=== PATIENT | male | born 1975 | race Caucasian/White ===

== ENCOUNTER 2017-11-16 21:58 | Emergency (ER) | payer OTHER ==
[2017-11-16] MEDS ORDERED: HYDROcodone/APAP 5-325MG 1 EACH TAB PO STA (22:53)
--- NOTE | 2017-11-16 22:57 | ED ---
General Adult HPI - General Chief complaint: Back Pain/Injury Stated complaint: Fall/Back Pain Time Seen by Provider: 11/16/17 22:45 Source: patient, family, RN notes reviewed Mode of arrival: ambulatory Limitations: no limitations - History of Present Illness Initial comments: Chief complaint and history of present illness a 42-year-old male here with his . The patient reports she was going out to the animals that he slipped on the ice and snow. Leading on his steps. complains of pain to the left lower lumbar and left rib cage area. Denies any head neck arm or lower extremity pain. - Related Data Previous Rx's Medication Instructions Recorded Hydrocodone/Acetaminophen [[place] 1 each PO Q6HR PRN #16 tab 11/16/17 5-325] Orphenadrine [Norflex] 100 mg PO Q12H #10 tablet.er 11/16/17 Allergies Allergy/AdvReac Type Severity Reaction Status Date / Time No Known Allergies Allergy Verified 11/16/17 22:19 Review of Systems ROS Statement: Those systems with pertinent positive or pertinent negative responses have been documented in the HPI. review of systems anything reviewed and his only complaint is pain as noted in chief complaint. Past medical problems occasional headaches. Surgeries pilonidal abscess twice. Family history no cancers. Patient denies ALLERGIES. He does smoke he is encouraged stop, does drink alcohol. ROS Other: All systems not noted in ROS Statement are negative. Past Medical History Past Medical History: No Reported History Additional Past Medical History / Comment(s): headache History of Any Multi-Drug Resistant Organisms: None Reported Past Surgical History: No Surgical Hx Reported Additional Past Surgical History / Comment(s): tailbone Past Psychological History: No Psychological Hx Reported Smoking Status: Current every day smoker Past Alcohol Use History: Occasional Past Drug Use History: None Reported General Exam - General Exam Comments Initial Comments: physical examination Pertinent to the patient's visits emergency room. Vitals show temperature 97.7 pulse 103 respiratory rate 20 pulse ox 90% room air blood pressure 113/67. Examination finds pain but no bruising to the left lower lateral flank and rib cage. Muscle tenderness but no bruising noted at this time. Lungs are clear to auscultation Limitations: no limitations Course Vital Signs 11/16/17 22:08 Temperature 97.7 F Pulse Rate 103 H Respiratory 20 Rate Blood Pressure 113/67 O2 Sat by Pulse 98 Oximetry Medical Decision Making - Medical Decision Making Medical decision making; patient's serum because he fell backwards and landed on his back on his steps at his home. X-rays of lumbosacral spine were done and reviewed by radiologist his findings are; the vertebra have normal alignment. There is anterior spurring throughout the lumbar spine. Posterior elements are intact. There is no compression fracture. Sacroiliac joints are intact. Impression; hypertrophic degenerative spurring. No fracture seen. Mild disc space narrowing from L3 to S1. As read by Dr. Falk The patient had x-rays of the left ribs with AP chest. As reviewed by radiologist his findings are; heart and mediastinum are normal. Lungs are clear to of infiltrates. No pleural effusion or pneumothorax. No displaced rib fractures. Impression; negative left rib exam. Normal chest. As read by Dr. Falk while in emergency room the patient received one [place] tablet. A be advised to apply ice gentle stretching and be placed on some pain medication the muscle relaxant for the next several days. Advised to return emergency room or follow- up family physician if he has any difficulties. Disposition Clinical Impression: Contusion of back wall of thorax Disposition: HOME SELF-CARE Condition: Fair Instructions: Acute Low Back Pain (ED) Additional Instructions: alternate ice with heat and hot showers gentle stretching. Take medications as directed for pain. Follow-up with family physician return emergency room as needed.A change in her stool or urine return to the ER Prescriptions: Hydrocodone/Acetaminophen [[place] 5-325] 1 each PO Q6HR PRN #16 tab PRN Reason: Pain Orphenadrine [Norflex] 100 mg PO Q12H #10 tablet.er Referrals: None,Stated [Primary Care Provider] - 1-2 days Time of Disposition: 23:42
--- NOTE | 2017-11-16 23:19 | XR ---
EXAMINATION TYPE: XR ribs LT w pa chest xray DATE OF EXAM: 11/16/2017 COMPARISON: NONE HISTORY: Rib pain TECHNIQUE: 5 views FINDINGS: Heart and mediastinum are normal. Lungs are clear of infiltrate. I see no pleural effusion or pneumothorax. I see no displaced rib fracture. IMPRESSION: Negative left rib exam. Normal chest.
--- NOTE | 2017-11-16 23:20 | XR ---
EXAMINATION TYPE: XR lumbosacral spine min 4V DATE OF EXAM: 11/16/2017 COMPARISON: NONE HISTORY: Back pain TECHNIQUE: 5 views FINDINGS: The vertebra have normal alignment. There is anterior spurring throughout the lumbar spine. Posterior elements are intact. There is no compression fracture. Sacroiliac joints are intact. IMPRESSION: Hypertrophic degenerative spurring. No fracture seen. Mild disc space narrowing from L3 t o S1.
[2017-11-16 23:38] VITALS: BP 113/67; PULSE 103; RESP 20; TEMP 97.7
== END 2017-11-16 23:56 | disposition home or self-care (01) ==
LOC: EC 21:58
DX: S20.222A Contusion of left back wall of thorax, initial encounter (principal); F17.200 Nicotine dependence, unspecified, uncomplicated; W00.1XXA Fall from stairs and steps due to ice and snow, initial encounter; Y92.009 Unspecified place in unspecified non-institutional (private) residence as the place of occurrence of the external cause
CPT/HCPCS: 72110; 99283